=== PATIENT | male | born 1980 | race Caucasian/White ===

== ENCOUNTER 2021-04-03 13:57 | Emergency (ER) | payer OTHER ==
[2021-04-03] MEDS ORDERED: MOTRIN600 MG PO (17:47)
== END 2021-04-03 18:09 | disposition home or self-care (01) ==
LOC: FER 13:57
DX: S93.402A Sprain of unspecified ligament of left ankle, initial encounter (principal); X50.1XXA Overexertion from prolonged static or awkward postures, initial encounter; Y92.009 Unspecified place in unspecified non-institutional (private) residence as the place of occurrence of the external cause
CPT/HCPCS: 73610; 73630